=== PATIENT | male | born 1965 | race Caucasian/White ===

== ENCOUNTER 2017-12-25 11:09 | Outpatient (CLI) ==
--- NOTE | 2017-12-25 13:53 | DI ---
EXAM: KUB. History: Abdominal pain and renal calculi. Findings: Nonspecific but nonobstructive bowel gas pattern. Multiple calcifications are seen projec ting over the bilateral renal shadows. The largest on the right measuring 2 mm in the largest on the left measuring 4 mm. 3 mm calculus seen within the left pelvis. Calcified granulomas seen within t he spleen. No acute osseous abnormalities. No free intraperitoneal air. Impression: 1. Bilateral nephrolithiasis. 2. 3 mm calculus within the left pelvis could represent phlebolith or distal ureteral stone.
== END 2017-12-25 11:10 | disposition home or self-care (01) ==
LOC: RAD 11:09
PROVIDERS: ATTEND Urology
DX: N20.0 Calculus of kidney (principal)